=== PATIENT | female | born 1990 | race Caucasian/White ===

== ENCOUNTER 2019-03-02 09:35 | Emergency (ER) | payer SELFPAY ==
[~2019-03-02] VITALS: Ht 162.6 cm; Wt 61.7 kg
[~2019-03-02 09:35] MED LIST: ACET325T33 PO; ACET500C5 PO; FLUT9.9S NASAL
[2019-03-02 09:38] VITALS: BP 123/87; PULSE 81; RESP 18; Ht 162.6 cm; Wt 61.7 kg
== END 2019-03-02 12:45 | disposition left against medical advice (07) ==
LOC: FTE 09:35
DX: O26.891 Other specified pregnancy related conditions, first trimester (principal); R10.2 Pelvic and perineal pain; Z3A.00 Weeks of gestation of pregnancy not specified
CPT/HCPCS: 36415; 76801; 76817; 81001; 81003; 84702; 85025; 86900; 86901

== ENCOUNTER 2019-04-17 08:05 | Emergency (ER) | payer SELFPAY ==
[~2019-04-17] VITALS: Ht 162.6 cm; Wt 62.1 kg
[2019-04-17 08:08] VITALS: BP 121/66; PULSE 81; RESP 19; Ht 162.6 cm; Wt 62.1 kg
== END 2019-04-17 09:01 | disposition home or self-care (01) ==
LOC: FTE 08:05
DX: J06.9 Acute upper respiratory infection, unspecified (principal)
CPT/HCPCS: 99283